=== PATIENT | male | born 1970 | race Caucasian/White ===

== ENCOUNTER 2018-07-13 19:48 | Emergency (ER) | payer SELFPAY ==
[2018-07-13 19:49] VITALS: BP 128/81; PULSE 83; RESP 20; TEMP 36.9; O2SAT 96; BMI 25.5
--- NOTE | 2018-07-13 19:52 | RAD_ITS ---
STUDY: X-RAY - RIGHT FOOT CLINICAL: Male, 48 years old. Ankle pain. TECHNIQUE: 3 view(s) of the foot. COMPARISON: None. FINDINGS: There is no acute fracture or dislocation. A well-corticated fragment is noted along the dorsal aspect of the talar head. Soft tissues and bony structures are otherwise unremarkable. RAD/Foot min 3 Views IMPRESSION: No acute findings. Old chip or avulsion fracture dorsal to the talus. Electronically Signed: Barbi Neal MD at 20:26 EST Tel , Service support ,
--- NOTE | 2018-07-13 19:58 | RAD_ITS ---
STUDY: X-RAY - RIGHT ANKLE REASON FOR EXAM: Male, 48 years old. Rolled ankle. Pain. TECHNIQUE: 3 view(s) of the ankle. COMPARISON: None. FINDINGS: There is no acute fracture or dislocation. There is a small, well-corticated fracture fragment inferior to the lateral malleolus. This appears chronic. Bony structures are otherwise unremarkable. Joint spaces are well-maintained. There is moderate lateral soft tissue swelling. Soft tissues are otherwise unremarkable. RAD/Ankle min 3 Views IMPRESSION: 1. 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 2. Lateral soft tissue tissue swelling, otherwise negative study. Electronically Signed: Barbi Neal MD at 20:25 EST Tel , Service support ,
--- NOTE | 2018-07-13 20:53 | ED.VIS.GEN ---
History of Present Illness Chief Complaint: Lower Extremity Injury Informant: Patient Onset: Hours - 3 Context: Sudden Onset - coming out of a vehicle from elevated position, twisted / inverted ankle Timing: Continuous Quality: ache/pain Location: right ankle Current Severity: Moderate Maximum Severity: Moderate Worsened by: trying to WB Relieved by: rest Associated Symptoms: none. able to ambulate, but w/ pain. Past Medical History - Allergies and Home Meds Allergies/Adverse Reactions: Allergies No Known Allergies Allergy (Verified 07/13/18 19:51) Primary Care Physician: Bari Wallace MD [Primary Care Provider] - Past Medical History: None Lives: Spouse/ Significant Other Smoking Status: Never smoker Review of Systems Musculoskeletal: Reports: Extremity Pain. Denies: Neck pain, Back pain Skin: Denies: Abrasions, Wounds Neurological: Denies: Headache, Weakness, Parasthesia, Numbness Physical Exam Vital Signs/Narrative: Vital Signs Temp Pulse Resp BP Pulse Ox 07/13/18 19:49 98.5 F 83 20 H 128/81 H 96 Inital Vital Signs reviewed: Yes General: Well nourished, Well developed, - - nad Head: Normocephalic, Atraumatic Extremities: Tenderness - Right lateral malleolus and tissues just distal/anterior to this. Ankle was stable. Nontender at the base of the fifth metatarsal, the medial malleolus, the calcaneus, and the proximal fibula. Limited range of motion right ankle secondary to pain. No other injuries or problems. Skin: Normal color, No rash, - - Swelling around right lateral malleolus without any opening in the skin. Neurological: Alert, Oriented x3, Cranial nerves II-XII grossly intact, Normal Strength, Normal Sensation Diagnostic/Tx/Re-eval Clinical Impression(s) from Imaging Studies Foot X-Ray 07/13/18 19:52 IMPRESSION: No acute findings. Old chip or avulsion fracture dorsal to the talus. Electronically Signed: Barbi Neal MD at 20:26 EST Tel , Service support , Ankle X-Ray 07/13/18 19:58 IMPRESSION: 1. 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 2. Lateral soft tissue tissue swelling, otherwise negative study. Electronically Signed: Barbi Neal MD at 20:25 EST Tel , Service support , - Medical Decision Making X-ray showed no acute fractures. He was placed in an Aircast given anti-inflammatories and advised to follow-up in the next 1-2 weeks. He will be offered crutches at discharge. ED Disposition - Plan for ED Patient: Disposition: Home or Assisted Living Chief Complaint: Lower Extremity Injury Diagnosis: Sprain of right ankle Instructions: ED Sprain Ankle W X Ray Referrals: Bari Wallace MD [Primary Care Provider] - 1 Week if not improving
--- NOTE | 2018-07-13 20:57 | ED.DCSUM_ITS ---
History of Present Illness Chief Complaint: Lower Extremity Injury Informant: Patient Onset: Hours - 3 Context: Sudden Onset - coming out of a vehicle from elevated position, twisted / inverted ankle Timing: Continuous Quality: ache/pain Location: right ankle Current Severity: Moderate Maximum Severity: Moderate Worsened by: trying to WB Relieved by: rest Associated Symptoms: none. able to ambulate, but w/ pain. Past Medical History - Allergies and Home Meds Allergies/Adverse Reactions: Allergies No Known Allergies Allergy (Verified 07/13/18 19:51) Primary Care Physician: Bari Wallace MD [Primary Care Provider] - Past Medical History: None Lives: Spouse/ Significant Other Smoking Status: Never smoker Review of Systems Musculoskeletal: Reports: Extremity Pain. Denies: Neck pain, Back pain Skin: Denies: Abrasions, Wounds Neurological: Denies: Headache, Weakness, Parasthesia, Numbness Physical Exam Vital Signs/Narrative: Vital Signs Temp Pulse Resp BP Pulse Ox 07/13/18 19:49 98.5 F 83 20 H 128/81 H 96 Inital Vital Signs reviewed: Yes General: Well nourished, Well developed, - - nad Head: Normocephalic, Atraumatic Extremities: Tenderness - Right lateral malleolus and tissues just distal/anterior to this. Ankle was stable. Nontender at the base of the fifth metatarsal, the medial malleolus, the calcaneus, and the proximal fibula. Limited range of motion right ankle secondary to pain. No other injuries or problems. Skin: Normal color, No rash, - - Swelling around right lateral malleolus without any opening in the skin. Neurological: Alert, Oriented x3, Cranial nerves II-XII grossly intact, Normal Strength, Normal Sensation Diagnostic/Tx/Re-eval Clinical Impression(s) from Imaging Studies Foot X-Ray 07/13/18 19:52 IMPRESSION: No acute findings. Old chip or avulsion fracture dorsal to the talus. Electronically Signed: Barbi Neal MD at 20:26 EST Tel , Service support , Ankle X-Ray 07/13/18 19:58 IMPRESSION: 1. 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 2. Lateral soft tissue tissue swelling, otherwise negative study. Electronically Signed: Barbi Neal MD at 20:25 EST Tel , Service support , - Medical Decision Making X-ray showed no acute fractures. He was placed in an Aircast given anti- inflammatories and advised to follow-up in the next 1-2 weeks. He will be offered crutches at discharge. ED Disposition - Plan for ED Patient: Disposition: Home or Assisted Living Chief Complaint: Lower Extremity Injury Diagnosis: Sprain of right ankle Instructions: ED Sprain Ankle W X Ray Referrals: Bari Wallace MD [Primary Care Provider] - 1 Week if not improving
[2018-07-13] MEDS: Naproxen 250 MG Tablet 500 MG PO (21:21)
[2018-07-13 21:27] VITALS: PULSE 76; RESP 16; O2SAT 98
== END 2018-07-13 21:29 | disposition home or self-care (01) ==
PROVIDERS: Emergency Provider Emergency Medicine; Family Provider Family Medicine; PCP Family Medicine
DX: S93.401A Sprain of unspecified ligament of right ankle, initial encounter (principal); X50.1XXA Overexertion from prolonged static or awkward postures, initial encounter; Y93.9 Activity, unspecified; Y92.9 Unspecified place or not applicable; Y99.9 Unspecified external cause status
CPT/HCPCS: 73610; 73630; 99283

== ENCOUNTER 2020-12-19 17:13 | Emergency (ER) | payer OTHER, SELFPAY ==
[2020-12-19 17:14] VITALS: BP 145/91; PULSE 71; RESP 14; TEMP 36.6; O2SAT 97; BMI 26.8
--- NOTE | 2020-12-19 17:46 | RAD_ITS ---
STUDY: X-RAY - RIGHT WRIST REASON FOR EXAM: Male, 50 years old. Injury/Pain TECHNIQUE: 3 view(s) of the wrist were obtained. COMPARISON: None. FINDINGS: Normal visualized distal radius and ulna. Normal radiocarpal articulation. Normal distal radioulnar articulation. Normal carpal bones. Normal carpal articulations. Normal carpometacarpal articulation of the thumb. Normal second through fifth carpometacarpal articulations. Normal visualized metacarpal bones. The soft tissue structures are unremarkable. There is no demonstrated acute fracture. RAD/Wrist min 3 Views IMPRESSION: Normal x-ray examination of the wrist. Electronically Signed: Marilee Arora MD at 18:15 EDT , Service support ,
[2020-12-19] MEDS: HYDROcodone Bitartrate/Apap 5/325 Tablet PO (18:05)
[2020-12-19] MEDS: Lidocaine 1% (20 ml mdv) 20 ML Vial INFILT (19:28)
--- NOTE | 2020-12-19 19:41 | ED.DCSUM_ITS ---
- ER Visit Summary Date of Service: 12/19/20 Chief Complaint: Foreign body right wrist History of Present Illness: The patient is a 50 M who presents with foreign body to his right wrist that occurred today. Patient states he got a splinter of wood into his right wrist. Patient saw his primary care physician today who attempted to remove this without success. Patient was then referred to the emergency department. Patient the pain is worse with movement. Patient denies any fevers or chills. Patient denies any paresthesias or weakness. Patient states his tetanus is up-to-date. Physical Examination: Vital signs are stable. Patient is afebrile. Patient is in no acute distress. Musculoskeletal exam reveals a puncture wound over the volar aspect of the right wrist on the radial aspect. There is no bleeding. There is no discharge or drainage. The foreign body is not visualized. Sensation was intact to light touch in the radial, median, and ulnar areas. Is 5/5 in the radial, median, and ulnar areas. Capillary refill was less than 2 seconds in all digits. Radial pulses are equal bilaterally. Test Results: X-rays of the right wrist were obtained. There are [3] views. On my interpretation, there is no acute fracture. There is no dislocation. There is no foreign body visualized. Radiologist also interpreted the x-rays and agrees. Emergency Department Course and Treatment: The puncture wound was cleaned and irrigated with copious amounts normal saline. The area was anesthetized with 1% lidocaine locally. The wound was probed. The foreign body was located and removed with hemostats. Patient tolerated the procedure well. The wound was left open. Patient was given a dose of Keflex here. Patient was given a prescription for Keflex. Patient was instructed to follow-up with his primary care physician in 5 to 7 days. Patient understood and was agreeable with the plan. All questions were answered. Disposition: Discharge home Impression: 1. Foreign body right wrist 2. Foreign body removal by emergency physician This note was generated with [employer] dictation software. It may contain incorrect words, spelling, and punctuation that were not noted in review of the chart prior to signing ED Disposition - Plan for ED Patient: Disposition: Home or Assisted Living Diagnosis: Foreign body of wrist, right, superficial Instructions: ED Foreign Body, Soft Tissue (Removed) Prescriptions: Cephalexin [Keflex] 500 mg PO Q6 #40 capsule Transmission Status: Received by [id number] Referrals: Bari Wallace MD [Primary Care Provider] - 5-7 Days
[2020-12-19] MEDS: Cephalexin 500 MG Capsule PO (19:49)
== END 2020-12-19 19:53 | disposition home or self-care (01) ==
PROVIDERS: Emergency Provider Emergency Medicine; PCP Family Medicine
DX: S61.541A Puncture wound with foreign body of right wrist, initial encounter (principal); W45.8XXA Other foreign body or object entering through skin, initial encounter; Y93.9 Activity, unspecified; Y92.9 Unspecified place or not applicable; Y99.9 Unspecified external cause status
CPT/HCPCS: 73110; 99283

== ENCOUNTER 2022-01-12 22:04 | Emergency (ER) | payer OTHER, SELFPAY ==
[2022-01-12 22:05] VITALS: BP 143/102; PULSE 77; RESP 15; TEMP 36.4; O2SAT 98; BMI 25.1
[2022-01-12 22:07] VITALS: BP 143/102; PULSE 77; RESP 15; TEMP 36.4; O2SAT 98
--- NOTE | 2022-01-12 23:10 | RAD_ITS ---
STUDY: X-RAY - RIGHT HAND, ATTENTION THIRD FINGER REASON FOR EXAM: Male, 51 years old. 3RD FINGER CRUSHED BETWEEN METAL AND FINGERNAIL CAME OFF. TECHNIQUE: 3 view(s) of the finger were obtained. COMPARISON: None. FINDINGS: Normal metacarpal head. Normal metacarpophalangeal joint. Normal proximal phalanx. Normal middle phalanx. Mildly displaced fracture of the third distal phalanx tuft with adjacent soft tissue swelling/injury. Normal proximal interphalangeal joint. Normal distal interphalangeal joint. RAD/Finger(s) Min 2 Views IMPRESSION: Third distal phalanx tuft fracture. Electronically Signed: Rodolfo Vieyra MD ([place]) at 23:24 EDT ,
--- NOTE | 2022-01-13 00:15 | EX.ED.UPPERE ---
HPI History of Present Illness Chief Complaint: Upper Extremity Injury Informant: patient Occured/Mechanism Mechanism/Context: Yes crush Onset/Context/Timing Onset: Today Quality of Pain: Throbbing Current Severity: Moderate Maximum Severity: Moderate Narrative Narrative: Patient presents secondary to crush injury of the right third finger. He got his hand caught between a dump truck and a gate. He is right-hand dominant. Tetanus update was 1 year ago. He states initially the proximal end of the nail was sticking out but he talked it back into place. PFSH PFSH no medical history Home Medications cephalexin 500 mg PO Q6 #40 cap 01/13/22 [Rx Last Taken Unknown] hydrocodone-acetaminophen 1 tab PO Q6H PRN 3 Days #10 tab 01/13/22 [Rx Last Taken Unknown] Allergy/AdvReac Type Severity Reaction Status Date / Time No Known Allergies Allergy Verified 12/19/20 17:16 Family History Father Glioblastoma Surgical History S/P hernia repair s/p left thumb surgery S/P vasectomy Social History Smoking Status: Never smoker ROS ROS ED Constitutional Constitutional ED: Denies chills or fever(s) Eyes Eyes: Denies change in vision ENT ENT ED: Denies sore throat Cardiovascular Cardiovascular: Denies chest pain Respiratory/Chest Respiratory/Chest: Denies cough or dyspnea Gastrointestinal Gastrointestinal: Denies abdominal pain, diarrhea, nausea or vomiting Genitourinary Genitourinary ED: Denies dysuria Musculoskeletal Musculoskeletal: Reports arthralgias; Denies back pain Integumentary Denies rash Neurologic Neurologic: Denies headache(s) or weakness Psychiatric Psychiatric: Denies anxiety or depression Allergic/Immunologic Allergic/Immunologic ED: Denies urticaria EXAM Physical Exam Const Vital Signs: 01/12/22 22:05 01/12/22 22:07 Temperature 97.5 F L 97.5 F L Temperature Source Temporal Temporal Pulse Rate 77 77 Respiratory Rate 15 15 Blood Pressure 143/102 H 143/102 H Blood Pressure Mean 115 115 Pulse Ox 98 98 Oxygen Delivery Method Room Air Room Air Positive well nourished and well developed General Appearance ED: well developed HEENT normocephalic Eyes PERRL and EOMs intact bilaterally Neck supple Chest Wall inspection of chest normal and palpation of chest normal Resp normal respiratory effort and clear to auscultation bilaterally Cardio regular rate and regular rhythm GI non-tender and non-distended Palpation: soft Extremity Extremity Narrative: Pain along the distal aspect of the right third finger. Small amount of bleeding from underneath the nail. 1 cm laceration along the ulnar side of the nailbed, 1/2 cm laceration along the radial side. Good cap refill and sensation distally. Neuro oriented x3 Sensorium / Orientation: alert MDM MDM MDM Narrative Medical decision making narrative: Digital block performed for pain control with lidocaine and Marcaine. Finger x-rays obtained. Radiography Diagnostic Testing: Clinical Impression(s) from Imaging Studies Finger X-Ray 01/12/22 23:10 IMPRESSION: Third distal phalanx tuft fracture. Electronically Signed: Rodolfo Vieyra MD ([place]) at 23:24 EDT Reading Location ID and State: [facility] / MD , Service support , Treatment and Re-Evaluation Narrative: X-ray per my interpretation does reveal distal tuft fracture. A total of 5 cc of 50% lidocaine/50% Marcaine using digital block. Wound cleansed. 2 sutures of 4-0 nylon placed along the ulnar side of the nail, 1 suture placed along the radial side. Steri-Strips placed to secure the nail. Dressing applied. Patient to follow-up in 1 week for suture removal and repeat imaging to ensure appropriate healing and alignment. Patient be treated with a course of Keflex as he does have an open fracture. He is also given [place] for breakthrough pain if needed at home. Discharge Plan Triage Chief Complaint: Upper Extremity Injury ED Provider: Davina Jarquin Dx/Rx/DC Orders Clinical Impression: Crush injury to finger, Open fracture of tuft of distal phalanx of finger Instructions: ED Fracture, Finger, Open Prescriptions: New cephalexin 500 mg capsule 500 mg PO Q6 Qty: 40 RF: 0 hydrocodone-acetaminophen 5-325 mg tablet 1 tab PO Q6H PRN (Reason: pain) 3 Days Qty: 10 RF: 0 Primary Care Provider: Bari Wallace: Bari Wallace MD [Primary Care Provider] - 7 Days for suture removal Disposition Disposition: Home, Self Care Discharge Date/Time: 01/13/22 00:29
[2022-01-13] MEDS: Cephalexin 250 MG Capsule 500 MG PO (00:24)
[2022-01-13] MEDS: Lidocaine 1% (20 ml mdv) 20 ML Vial INFILT (00:25)
[2022-01-13] MEDS: Bupivacaine Mpf 0.5% 30 ML VIAL INFILT (00:25)
[2022-01-13 00:27] VITALS: PULSE 76; RESP 15; O2SAT 98
== END 2022-01-13 00:29 | disposition home or self-care (01) ==
PROVIDERS: Emergency Provider Emergency Medicine; PCP Family Medicine; Visit Provider Emergency Medicine
DX: S62.632B Displaced fracture of distal phalanx of right middle finger, initial encounter for open fracture (principal); W23.0XXA Caught, crushed, jammed, or pinched between moving objects, initial encounter
CPT/HCPCS: 12001; 73140; 99283

== ENCOUNTER 2023-02-07 15:52 | Emergency (ER) | payer OTHER, SELFPAY ==
[2023-02-07 15:55] VITALS: BP 156/104; PULSE 72; RESP 16; TEMP 36.4; O2SAT 97; BMI 27.1
[2023-02-07 16:57] LABS: Absolute Lymphocyte Count 2.03 X10^3/uL (0.83-4.51); Basophil# 0.05 X10^3/uL; Basophil% 0.6 % (0-1); Eosinophils% 2.2 % (0-5); Hematocrit 48.2 % (40-54); Lymphocyte # 2.03 X10^3/ul (0.83-4.51); Lymphocyte % 22.5 % (19-41); Mean Corp Hgb Conc 33.2 g/dL (32-36); Mean Corpuscular Hgb 29.4 pg (27.0-32.0); Mean Corpuscular Volume 88.4 fL (80-94); Mean Platelet Vol. 9.5 fl (6.2-12.0); Monocyte% 7.8 % (0-10); NRBC Flagged by Analyzer 0 % (0-5); Neutrophil # 6.01 X10^3/uL (2.7-7.7); Neutrophil % 66.6 % (47-70); Platelet Count 248 K/mm3 (150-450); RBC Distribution Width CV 12.8 % (11.6-14.6); RBC Distribution Width SD 41.8 fl (35.1-43.9); Red Blood Count 5.45 M/mm3 (4.6-6.2)
--- NOTE | 2023-02-07 17:08 | ED.VIS.GI ---
HPI HPI - GI History of Present Illness Chief Complaint: Abd Pain Informant: patient Narrative Narrative: Patient is a 52-year-old male that denies any significant past medical history however he notes he does have intermittent blood in his stool (none recently and attributes it to hemorrhoids) presenting with right lower quadrant abdominal pain. Patient states he had a little bit of discomfort last night that woke him up from sleep. He attributed to eating coleslaw and strawberries that night. He took some Tums and fell back asleep. This morning while sure she had the pain again. Is intermittent. His right lower quadrant but also goes to his lower back. He denies any urinary symptoms. States he spent a little bloated. Denies associated nausea or vomiting. Denies any change in his bowel habits but notes he does have chronic only loose bowel movements. He currently has no complaints at all and feels that he does not even need to be in the emergency room. Does have a history of inguinal hernia repair remotely. No other abdominal surgeries. No other complaints or concerns at this time. PFSH PFSH Home Medications cephalexin 500 mg capsule 500 mg PO Q6 #40 caps 01/13/22 [Rx Last Taken Unknown] hydrocodone-acetaminophen 5-325mg 5mg-325mg 1 tab PO Q6H PRN pain 3 days #10 tabs 01/13/22 [Rx Last Taken Unknown] Allergy/AdvReac Type Severity Reaction Status Date / Time No Known Allergies Allergy Verified 02/07/23 15:57 Family History Father Glioblastoma Surgical History S/P hernia repair s/p left thumb surgery S/P vasectomy Social History Smoking Status: Never smoker ROS ROS ED Constitutional Constitutional ED: Denies chills or fever(s) ENT ENT ED: Denies sore throat Cardiovascular Cardiovascular: Denies chest pain Respiratory/Chest Respiratory/Chest: Denies cough Gastrointestinal Gastrointestinal: Reports abdominal pain and diarrhea; Denies constipation, nausea or vomiting Genitourinary Genitourinary ED: Denies dysuria, hematuria or urinary frequency Musculoskeletal Musculoskeletal: Reports back pain; Denies arthralgias or myalgias Integumentary Denies rash Neurologic Neurologic: Denies headache(s) or weakness Psychiatric Psychiatric: Denies anxiety Hematologic/Lymphatic Hematologic/Lymphatic: Denies easy bleeding or easy bruising EXAM Physical Exam Const Vital Signs: 02/07/23 15:55 Temperature 97.6 F L Temperature Source Temporal Pulse Rate 72 Respiratory Rate 16 Blood Pressure 156/104 H Blood Pressure Mean 121 Pulse Ox 97 Oxygen Delivery Method Room Air Positive well nourished and well developed General Appearance ED: well developed and NAD; Negative for pallor HEENT Reports moist mucous membranes Eyes PERRL Neck supple Resp normal respiratory effort and clear to auscultation bilaterally Cardio regular rate, regular rhythm and no murmurs GI non-tender and non-distended GI Narrative: Negative [place] sign. No pain at McBurney's point. Auscultation: normoactive bowel sounds Palpation: soft; Negative for tender, guarding or rigid Back/Spine no CVA tenderness Extremity full ROM Neuro moves all extremities and no sensory deficits noted Sensorium / Orientation: alert Motor Exam: Negative for general weakness Psych mental status grossly normal and thought process normal Skin no wounds General Skin Exam: Negative for jaundice or pallor MDM MDM MDM Narrative Medical decision making narrative: Patient is evaluated for intermittent right lower quad abdominal pain. Does have some mild low back pain as well. He currently has no symptoms and states he feels well. Did not take any medication prior to arrival for the symptoms. His vital signs are significant for mildly elevated blood pressure 156/104 which is nonspecific. He is afebrile at this time. Physical exam is benign. He has no reproducible tenderness at this time. Patient discusses concern about the cost of testing and wonders if a CT is really indicated when I recommended it to rule out appendicitis, diverticulitis and kidney stone. Patient would like to start with blood work and urine to see if imaging is indicated at this time. Given that he is asymptomatic at this time I think this is reasonable but I did discuss that we could miss a potential diagnosis without imaging. Patient states his pain is resolved at this point. He is walking around the room comfortably. We have reviewed his laboratory results which are largely normal. He has some slight contamination of her urine but no clear-cut signs consistent with UTI or kidney stone. He does not have a leukocytosis. His kidney function is normal. No significant electrolyte abnormalities or signs of dehydration. At this time patient would like to go home. We did discuss at length whether to perform a CT her abdomen and pelvis. I counseled that the work-up is not complete without a CT as findings consistent with early appendicitis, obstructive kidney stone or diverticulitis could be missed with just the lab work. Patient is encouraged to return to the emergency room if his pain worsens. Is counseled that it safe for him to alternate ibuprofen and Tylenol and that if the pain becomes more severe that this is not helping and he should return to the emergency room. Also her to fall with his primary care doctor. Lab Data Labs: Laboratory Results - last 24 hr 02/07/23 02/07/23 02/07/23 16:48 16:48 17:45 WBC 9.0 RBC 5.45 Hgb 16.0 Hct 48.2 MCV 88.4 MCH 29.4 MCHC 33.2 RDW Std Deviation 41.8 RDW Coeff of Maggy 12.8 Plt Count 248 MPV 9.5 Immature Gran % (Auto) 0.300 Neut % (Auto) 66.6 Lymph % (Auto) 22.5 [place] % (Auto) 7.8 Eos % (Auto) 2.2 Baso % (Auto) 0.6 Absolute Neuts (auto) 6.0 Absolute Lymphs (auto) 2.03 Nucleated RBC % 0 Sodium 141 Potassium 4.0 Chloride 107 Carbon Dioxide 29.0 Anion Gap 5 BUN 17 Creatinine 1.17 Estim Creat Clear Calc 75.53 Est GFR (MDRD) Af Amer 85 Est GFR (MDRD) Non-Af 70 BUN/Creatinine Ratio 14.5 Glucose 90 Calcium 9.9 Total Bilirubin 0.50 AST 22 ALT 38 Alkaline Phosphatase 75 Total Protein 8.0 Albumin 4.1 Globulin 3.9 Albumin/Globulin Ratio 1.1 Urine Color Yellow Urine Clarity Clear Urine pH 5.0 Ur Specific [place] 1.020 Urine Protein Negative Urine Glucose (UA) Normal Urine Ketones Negative Urine Occult Blood 25 H Urine Nitrite Negative Urine Bilirubin Negative Urine Urobilinogen Normal Ur Leukocyte Esterase Negative Urine RBC 0 SEEN Urine WBC 0-5 SEEN Ur Squamous Epith Cells 0-5 SEEN Urine Bacteria 0 SEEN Urine Mucus 0 SEEN Discharge Plan Triage Chief Complaint: Abd Pain ED Provider: Sarina Paniagua Dx/Rx/DC Orders Clinical Impression: Abdominal pain, acute, right lower quadrant, Elevated blood pressure reading Instructions: ED Abdominal Pain Unkn Cause Male... Prescriptions: No Action cephalexin 500 mg capsule 500 mg PO Q6 Qty: 40 0RF hydrocodone-acetaminophen 5-325 mg tablet 1 tab PO Q6H PRN (Reason: pain) 3 Days Qty: 10 0RF Primary Care Provider: Bari Wallace Referrals: Bari Wallace MD [Primary Care Provider] - Activity Restrictions/Additional Instructions: Your lab work was normal. The exact cause your pain is not clear at this time. You can take ibuprofen and Tylenol for pain. If the pain worsens or if you have progression of your symptoms please return to the emergency room at that time we can reevaluate you and discuss further imaging. Your blood pressure was a bit elevated while in the ER. Please follow-up with your primary care doctor about this as well. Call the office on Wednesday for repeat evaluation. Disposition Disposition: Home, Self Care
[2023-02-07 17:14] LABS: ALB/GLOB Ratio 1.1 RATIO (0.9-2.4); AST(SGOT) 22 U/L (15-37); Alanine Aminotransfer ALT/SGPT 38 U/L (16-61); Albumin, Serum 4.1 g/dL (3.2-5.0); Alkaline Phosphatase 75 U/L (45-117); Anion Gap 5 (5-15); BUN 17 mg/dL (7-18); BUN/Creat Ratio 14.5 RATIO (10-20); Calcium,Total 9.9 mg/dL (8.5-10.1); Chloride 107 mmol/L (98-107); Creatinine, Serum 1.17 mg/dL (0.70-1.30); EST Glomerular Filtration Rate 70 mL/min (>60); Est Glom Filt Rate - Afr Amer 85 mL/min (>60); Estimated Creatinine Clearance 75.53 ml/min; Globulin 3.9 g/dL (2.2-4.2); Glucose 90 mg/dL (74-106); Sodium Level 141 mmol/L (136-145)
[2023-02-07 17:54] LABS: Bacteria 0 SEEN /hpf (None Seen); Mucous, Urine 0 SEEN /hpf (<or=2+); Red Blood Cells-Urine 0 SEEN /hpf (0-5)
[2023-02-07 17:56] LABS: Color, Urine Yellow (Yellow); Glucose, Dipstick Normal (Normal); Ketone-Dipstick Negative (Negative); Leukocyte Esterase-Dipstick Negative /ul (Negative); Nitrite-Dipstick Negative (Negative); Occult Blood-Urine 25 /ul (Negative); Protein-Dipstick Negative (Negative); Urine Bilirubin Dipstick Negative (Negative); Urine Clarity Clear (Clear); Urine Urobilinogen Normal (Normal)
[2023-02-07 18:25] LABS: Squamous Epithelial Cells - UA 0-5 SEEN /hpf (0-5); White Blood Cells 0-5 SEEN /hpf (0-5)
[2023-02-07 19:08] VITALS: BP 139/97; PULSE 62; RESP 16; O2SAT 98
== END 2023-02-07 19:09 | disposition home or self-care (01) ==
PROVIDERS: Emergency Provider Emergency Medicine; PCP Family Medicine; Visit Provider Emergency Medicine
DX: R10.31 Right lower quadrant pain (principal); R03.0 Elevated blood-pressure reading, without diagnosis of hypertension; M54.50 Low back pain, unspecified; R19.7 Diarrhea, unspecified
CPT/HCPCS: 80053; 81001; 85025; 99283